=== PATIENT | female | born 1930 | race Caucasian/White ===

== ENCOUNTER 2018-01-01 20:18 | Emergency (ER) | payer MEDICARE ==
[~2018-01-01] VITALS: Ht 160 cm; Wt 65.8 kg
== END 2018-01-01 22:27 | disposition home or self-care (01) ==
LOC: ER 20:18
DX: S33.5XXA Sprain of ligaments of lumbar spine, initial encounter (principal); W19.XXXA Unspecified fall, initial encounter
CPT/HCPCS: 72100; 72170; 99283